=== PATIENT | female | born 1945 | race Caucasian/White ===

== ENCOUNTER 2017-04-02 13:34 | Emergency (ER) | payer OTHER ==
[2017-04-02 13:41] VITALS: BP 164/96; PULSE 85; TEMP 98.4; BMI 27.4
[2017-04-02] MEDS ORDERED: ACETAMINOPHEN 500 MG TABLET (FP) PO ONE (14:07)
[2017-04-02] MEDS ORDERED: ACETAMINOPHEN 325 MG TABLET (FP) ONE (14:17)
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
--- NOTE | 2017-04-02 15:51 | EKG ---
Test Reason : Blood Pressure : / mmHG Vent. Rate : 064 BPM Atrial Rate : 064 BPM P-R Int : 188 ms QRS Dur : 076 ms QT Int : 410 ms P-R-T Axes : 034 016 007 degrees QTc Int : 422 ms NORMAL SINUS RHYTHM LOW VOLTAGE QRS BORDERLINE ECG WHEN COMPARED WITH ECG OF 07-DEC-2001 15:42, T WAVE AMPLITUDE HAS DECREASED IN ANTERIOR LEADS Confirmed by JACOB ZAMUDIO MD ([id number]) on 04/02/2017 3:51:03 PM Referred By: Confirmed By:JACOB ZAMUDIO MD
== END 2017-04-02 16:30 | disposition home or self-care (01) ==
LOC: JER 13:34
DX: S20.219A Contusion of unspecified front wall of thorax, initial encounter (principal); S60.012A Contusion of left thumb without damage to nail, initial encounter; V43.52XA Car driver injured in collision with other type car in traffic accident, initial encounter; W22.11XA Striking against or struck by driver side automobile airbag, initial encounter; Y92.414 Local residential or business street as the place of occurrence of the external cause; Y93.89 Activity, other specified; Y99.8 Other external cause status
CPT/HCPCS: 71250-TC; 73140-TC-LT; 93005; 93010; 99282-25

== ENCOUNTER 2020-08-19 19:25 | Inpatient (IN) | payer OTHER ==
[2020-08-19 21:19] LABS: BASO % 0.6 % (0-2.0); EOS % 1.2 % (0-4.5); HEMOGLOBIN 12.3 GM/dl (10.7-15.3); LYMPH % 16.5 % (8-40); MCH 26.8 pg (25.7-33.7); MCHC 32.4 g/dl (32.0-36.0); MEAN CELL VOLUME 82.6 fl (80-96); MONO % 5.4 % (3.8-10.2); NEUT % 76.3 % (42.8-82.8); PLATELET COUNT 278 K/MM3 (134-434); RBC 4.59 M/mm3 (3.60-5.2); RDW 22.1 % (11.6-15.6); WHITE BLOOD COUNT 7.6 K/mm3 (4.0-10.8)
[2020-08-19 21:26] LABS: INR 1.14 (0.82-1.09); PROTHROMBIN TIME (PATIENT) 12.7 SEC (10.2-13.0)
[2020-08-19 21:31] LABS: ALBUMIN 3.6 g/dl (3.4-5.0); BILIRUBIN,TOTAL 0.4 mg/dl (0.2-1); CREATININE 0.6 mg/dl (0.55-1.3); POTASSIUM 4.3 mmol/L (3.5-5.1); TOT PROT 6.7 g/dl (6.4-8.2)
[2020-08-19] MEDS ORDERED: DEXTROSE 5%-0.45% SALINE 1,000 ML IV SCH (23:45)
[2020-08-20 00:25] VITALS: BMI 25.0
[2020-08-20 07:55] LABS: BASO % 0.8 % (0-2.0); EOS % 1.6 % (0-4.5); HEMOGLOBIN 11.2 GM/dl (10.7-15.3); LYMPH % 18.7 % (8-40); MCH 27.2 pg (25.7-33.7); MCHC 32.9 g/dl (32.0-36.0); MEAN CELL VOLUME 82.8 fl (80-96); MEAN PLT VOLUME 9.2 fl (7.5-11.1); MONO % 6.2 % (3.8-10.2); NEUT % 72.7 % (42.8-82.8); PLATELET COUNT 230 K/MM3 (134-434); RDW 21.9 % (11.6-15.6); WHITE BLOOD COUNT 5.2 K/mm3 (4.0-10.8)
[2020-08-20 08:02] LABS: ALBUMIN 3.1 g/dl (3.4-5.0); BILIRUBIN,TOTAL 0.6 mg/dl (0.2-1); CALCIUM 8.4 mg/dl (8.5-10); CREATININE 0.5 mg/dl (0.55-1.3); TOT PROT 5.8 g/dl (6.4-8.2)
[2020-08-20 08:21] LABS: ADD RBC MORPHOLOGY YES
[2020-08-20 08:23] LABS: EPITHELIAL CELLS FEW /hpf
[2020-08-20 09:47] LABS: ANISOCYTOSIS 2+; OVALOCYTE 1+
[2020-08-20 09:48] LABS: PLATELET ESTIMATE ADEQUATE
[2020-08-20] MEDS: HYDROXYCHLOROQUINE SO4 200 MG TABLET (FP) PO SCH (10:00)
[2020-08-20] MEDS: PANTOPRAZOLE SODIUM 40 MG VIAL IVPUSH SCH (10:00)
[2020-08-21] MEDS: PEG/ELECTROLYTES (NULYTELY) 4,000 ML BOTTLE PO ONE (08:37)
[2020-08-21] MEDS: PANTOPRAZOLE SODIUM 40 MG VIAL IVPUSH SCH (09:06)
[2020-08-21] MEDS: HYDROXYCHLOROQUINE SO4 200 MG TABLET (FP) PO SCH (09:07)
[2020-08-22] MEDS ORDERED: PROPOFOL 20 ML ONE ×3 (08:08)
[2020-08-22] MEDS ORDERED: LIDOCAINE HCL/PF 2% SDV 5ML VIAL ONE (08:08)
[2020-08-22] MEDS: PANTOPRAZOLE SODIUM 40 MG VIAL IVPUSH SCH (10:29)
[2020-08-22] MEDS: HYDROXYCHLOROQUINE SO4 200 MG TABLET (FP) PO SCH (10:29)
[2020-08-22] MEDS: PEG/ELECTROLYTES (NULYTELY) 4,000 ML BOTTLE PO ONE (12:25)
[2020-08-22 14:43] VITALS: BP 132/72; PULSE 80; TEMP 98.7
== END 2020-08-22 15:00 | disposition home or self-care (01) | DRG 379 ==
LOC: FER 19:25 → FM/S 23:31 → UNDOADMIN 08-20 00:01
PROVIDERS: ADMIT Internal Medicine; ATTEND Nurse Practitioner Acute Care
PROC: 0DB38ZX Excision of Lower Esophagus, Via Natural or Artificial Opening Endoscopic, Diagnostic (ICD-10-PCS; 2020-08-22)
PROC: 0DB68ZX Excision of Stomach, Via Natural or Artificial Opening Endoscopic, Diagnostic (ICD-10-PCS; 2020-08-22)
PROC: 0DB18ZX Excision of Upper Esophagus, Via Natural or Artificial Opening Endoscopic, Diagnostic (ICD-10-PCS; 2020-08-22)
PROC: 0DBH8ZZ Excision of Cecum, Via Natural or Artificial Opening Endoscopic (ICD-10-PCS; 2020-08-22)
PROC: 0DBL8ZZ Excision of Transverse Colon, Via Natural or Artificial Opening Endoscopic (ICD-10-PCS; 2020-08-22)
PROC: 0D718ZZ Dilation of Upper Esophagus, Via Natural or Artificial Opening Endoscopic (ICD-10-PCS; principal; 2020-08-22 08:39)
DX: K55.21 Angiodysplasia of colon with hemorrhage (principal); K57.91 Diverticulosis of intestine, part unspecified, without perforation or abscess with bleeding; M34.1 CR(E)ST syndrome; K21.9 Gastro-esophageal reflux disease without esophagitis; K57.90 Diverticulosis of intestine, part unspecified, without perforation or abscess without bleeding; K22.2 Esophageal obstruction
CPT/HCPCS: 36415; 71045-TC-FY; 74177-TC; 80053; 81003; 81015; 82272; 82550; 84484; 85025; 85610; 86850; 86900; 86901; 88305-TC; 93005; 99285-25; C9803; Q9967; U0003

== ENCOUNTER 2021-04-08 08:36 | Day surgery (SDC) | payer OTHER ==
[2021-04-04 12:50] VITALS: BMI 23.3
[2021-04-08 10:13] VITALS: BP 123/56; PULSE 72; TEMP 97.8
== END 2021-04-08 11:00 | disposition home or self-care (01) ==
LOC: FASU-ENDO 08:36
PROVIDERS: ATTEND Internal Medicine Gastroenterology
PROC: 0DB68ZX Excision of Stomach, Via Natural or Artificial Opening Endoscopic, Diagnostic (ICD-10-PCS; 2021-04-08)
PROC: 0D748ZZ Dilation of Esophagogastric Junction, Via Natural or Artificial Opening Endoscopic (ICD-10-PCS; 2021-04-08)
PROC: 0DB28ZX Excision of Middle Esophagus, Via Natural or Artificial Opening Endoscopic, Diagnostic (ICD-10-PCS; principal; 2021-04-08 09:42)
DX: K29.50 Unspecified chronic gastritis without bleeding (principal); K22.2 Esophageal obstruction; K22.10 Ulcer of esophagus without bleeding; K44.9 Diaphragmatic hernia without obstruction or gangrene; R13.10 Dysphagia, unspecified
CPT/HCPCS: 88305-TC; 88312-TC; 88342-TC

== ENCOUNTER 2021-07-30 06:10 | Day surgery (SDC) | payer OTHER ==
[2021-07-30 06:49] VITALS: BMI 22.9
[2021-07-30] MEDS ORDERED: TETRACAINE 0.5% OPHTH SOLN 2 ML BOTTLE ONE (07:14)
[2021-07-30] MEDS ORDERED: ERYTHROMYCIN 0.5% OPHTHALMIC OINTMENT 3.5 GM TUBE ONE (07:14)
[2021-07-30] MEDS ORDERED: ceFAZolin SODIUM 1 GM VIAL ONE (07:14)
[2021-07-30] MEDS ORDERED: POVIDONE-IODINE 5% OPHTHALMIC PREP 30 ML SOLUTION ONE (07:14)
[2021-07-30] MEDS ORDERED: BUPIVACAINE HCL 50 ML ONE (07:15)
[2021-07-30] MEDS ORDERED: LIDOCAINE 1%/EPI 1:100000 (20 ML MULTI DOSE VIAL) ONE (07:15)
[2021-07-30] MEDS ORDERED: KETAMINE HCL 200 MG/20 ML VIAL ONE (07:38)
[2021-07-30] MEDS ORDERED: PROPOFOL 20 ML ONE ×3 (07:38)
[2021-07-30] MEDS ORDERED: SUCCINYLCHOLINE CHLORIDE 200 MG/10 ML SYRINGE ONE (07:38)
[2021-07-30] MEDS ORDERED: MIDAZOLAM HCL 2 MG/2 ML SINGLE DOSE VIAL ONE (07:38)
[2021-07-30] MEDS ORDERED: oxyCODONE HCL 5 MG TABLET PO PRN (08:56)
[2021-07-30] MEDS ORDERED: ONDANSETRON 4 MG/2 ML VIAL IVPUSH PRN (08:56)
[2021-07-30] MEDS ORDERED: ACETAMINOPHEN 325 MG TABLET (FP) PO PRN (08:57)
[2021-07-30 09:48] VITALS: TEMP 97.8
[2021-07-30 10:06] VITALS: BP 130/70; PULSE 70
== END 2021-07-30 10:15 | disposition home or self-care (01) ==
LOC: FASU 06:10
PROVIDERS: ATTEND Ophthalmology
PROC: 0JB10ZZ Excision of Face Subcutaneous Tissue and Fascia, Open Approach (ICD-10-PCS; 2021-07-30)
PROC: 0KX10ZZ Transfer Facial Muscle, Open Approach (ICD-10-PCS; principal; 2021-07-30 07:55)
DX: H02.59 Other disorders affecting eyelid function (principal); Z85.828 Personal history of other malignant neoplasm of skin
CPT/HCPCS: 94760

== ENCOUNTER 2022-08-11 16:07 | Emergency (ER) | payer OTHER ==
[2022-08-11] MEDS ORDERED: IBUPROFEN 400 MG TABLET (FP) PO ONE ×2 (16:11→16:15)
[2022-08-11] MEDS ORDERED: ACETAMINOPHEN 325 MG TABLET (FP) PO ONE (16:11)
[2022-08-11] MEDS ORDERED: ACETAMINOPHEN 325 MG TABLET (FP) ONE (16:15)
[2022-08-11 16:23] VITALS: BP 156/85; PULSE 83; RESP 20; TEMP 99.2; BMI 22.3
== END 2022-08-11 16:34 | disposition home or self-care (01) ==
LOC: FER 16:07
DX: U07.1 COVID-19 (principal)
CPT/HCPCS: 0241U-QW; 99283-25